=== PATIENT | male | born 2000 | race Asian ===

== ENCOUNTER 2023-08-26 14:08 | Emergency (ER) | payer OTHER ==
[2023-08-26 14:09] VITALS: BP 132/71; TEMP 97.2; O2SAT 98
== END 2023-08-26 19:22 | disposition home or self-care (01) ==
LOC: M ED 14:08
DX: H93.8X9 Other specified disorders of ear, unspecified ear (principal)

== ENCOUNTER 2023-09-12 08:22 | Day surgery (SDC) | payer OTHER ==
[~2023-09-12] VITALS: Ht 172.7 cm; Wt 75.3 kg
[~2023-09-12 08:22] MED LIST: FLON1SPR; KP F1200 PO; ZYRTTAB8 PO
[2023-09-12] MEDS: LR 1,000 ML IV SCH (09:04)
[2023-09-12] MEDS ORDERED: LIDOCAINE 2% 100MG/5ML SDV (FOR ANES.) As Ordered ONE (09:16)
[2023-09-12] MEDS ORDERED: ACETAMINOPHEN 1000MG 100ML IV BAG As Ordered ONE (09:16)
[2023-09-12] MEDS ORDERED: fentaNYL 100 MCG/2 ML INJECTION As Ordered ONE (09:16)
[2023-09-12] MEDS ORDERED: propofoL 200 MG/20 ML VIAL As Ordered ONE (09:16)
[2023-09-12] MEDS ORDERED: MIDAZOLAM INJ 2MG/2ML VIAL As Ordered ONE (09:16)
[2023-09-12] MEDS ORDERED: ONDANSETRON 4MG 2ML VIAL As Ordered ONE (09:19)
[2023-09-12] MEDS: POVIDONE-IODINE 5% OPHTH PREP SOL 30ML As Ordered ONE (10:35)
[2023-09-12] MEDS: LIDOCAINE W/EPINEPHRINE 1% 20ML VIAL As Ordered ONE (10:40)
[2023-09-12] MEDS ORDERED: KETOROLAC 60MG 2ML VIAL As Ordered ONE (10:47)
[2023-09-12] MEDS: BACITRACIN OINTMENT 30GM TUBE As Ordered ONE (10:48)
[2023-09-12] MEDS ORDERED: fentaNYL 100 MCG/2 ML INJECTION IV PRN (11:10)
[2023-09-12] MEDS ORDERED: HYDROMORPHONE HCL 0.5 MG/ 0.5 ML SYRINGE IV PRN (11:10)
[2023-09-12] MEDS ORDERED: ONDANSETRON 4MG 2ML VIAL IV PRN (11:10)
[2023-09-12] MEDS ORDERED: oxyCODONE 5MG TAB PO PRN (11:10)
[2023-09-12 12:40] VITALS: BP 110/57; TEMP 97.5; O2SAT 99
== END 2023-09-12 12:50 | disposition home or self-care (01) ==
LOC: M SDC 08:22
PROVIDERS: ATTEND Otolaryngology
DX: S00.431A Contusion of right ear, initial encounter (principal); X58.XXXA Exposure to other specified factors, initial encounter; Y92.89 Other specified places as the place of occurrence of the external cause; Y99.9 Unspecified external cause status; Y93.89 Activity, other specified; Z79.899 Other long term (current) drug therapy
CPT/HCPCS: 69000; J0131; J1100; J1885; J2250; J2405; J3010